=== PATIENT | female | born 2000 | race Two or more races ===

== ENCOUNTER 2025-04-05 12:42 | Inpatient (IN) ==
--- NOTE | 2025-04-05 13:15 | Emergency Department Note ---
Impression & Plan DKA (diabetic ketoacidosis), Hyperglycemia, Vomiting, Dehydration, Tachycardia ED Provider Note NAME: KITA JONES AGE: 24 SEX: F : 2000 ARRIVES VIA: Walk-In INFORMANT: [Patient] ED PROVIDER(S): [Yoandy Pedersen MD] CHIEF COMPLAINT: Hyperglycemia HISTORY OF PRESENT ILLNESS: The patient is a 24-year-old female who states that her sugars have been running high for at least a week although, today they have been over 500. The patient states that she had noted some abdominal pain with eating for the last week so, she would induce vomiting. Over the last 2 days, she has been vomiting spontaneously without induction. The patient has not had a fever or respiratory complaints. There has been no urinary complaint. She is concerned that she may be in DKA as her sugar has been high for a week now. She has been in DKA before. PMHx/PSHx/Social Hx: See Below PHYSICAL EXAM: GENERAL: Patient is in no acute distress. HEENT: No acute trauma, normocephalic atraumatic, mucous membranes moist, no nasal congestion. NECK: No stridor, no adenopathy, no meningismus, trachea is midline. LUNGS: Clear to auscultation bilaterally, no wheeze, no rhonchi, breath sounds equal. HEART: Slightly tachycardic with a subtle systolic murmur, regular rhythm. ABDOMEN: Soft, nontender, no peritonitis. EXTREMITIES: No cyanosis, full range of motion of all the joints without pain or difficulty. NEUROLOGIC: Oriented x 3, no acute motor or sensory deficits, no focal weakness. SKIN: No jaundice, no diaphoresis. DIFFERENTIAL DIAGNOSIS: DKA, hyperglycemia, dehydration, UTI, pneumonia, viral illness, among others. EMERGENCY DEPARTMENT PROCEDURES: MEDICAL DECISION MAKING: There is no leukocytosis or concerning anemia. Platelet count is somewhat high at 540. No bandemia. VBG does show acidosis consistent with the diagnosis of DKA. Renal panel testing shows a blood sugar over 600. An acidosis was present with a low CO2. No renal failure. No concerning liver enzyme elevation. testing was negative. Urinalysis shows glucose and ketones, no infection. Chest film does not show pneumonia. On exam, the patient was tachycardic. She was mentally alert. She was not hypotensive. The patient received IV saline, 1 L. She was given IV Zofran for nausea. She received a bolus of IV insulin and was placed on an insulin drip. Patient presents in DKA. Possibly, the stress of vomiting prompted the hyperglycemia and DKA. For now, admission is warranted. Hydration, insulin therapy, observation is required. I spoke with the patient and case management, the on-call hospitalist was consulted. Prior/Outside records/notes reviewed: None ECG per my interpretation: Indication was tachycardia. The ECG shows a sinus tachycardia with a rate of 103. There is no ST elevation, no PVCs. The QTc is 468. Continuous Cardiac Monitoring per my interpretation: An order was placed for continuous cardiac monitoring. The monitor shows a rate of 105 with sinus tachycardia. Imaging/x-ray results per my interpretation: Chest x-ray does not show pneumonia or cardiomegaly. Chronic Medical/Social conditions affecting care: Diabetes. Care/Management discussed with: Case management, the on-call hospitalist. Level of care consideration(s): After review of the information above and other included data: --I believe the patient requires escalation of care to admission Critical Care Note: I have personally spent 55 minutes of critical care time in the direct management of this patient. This includes bedside care, interpretation of diagnostic studies, and testing, discussion with consultants, patient, and family members, and other required patient management activities. This 55 minutes is in excess of all separately billable procedures. DISPOSITION: Admission Past Med/Surg History Problem List Tachycardia (Acute) Dehydration (Acute) Vomiting (Acute) Hyperglycemia (Acute) DKA (diabetic ketoacidosis) (Acute) No significant past surgical history Medical History Diabetes mellitus Social History Smoking Status: Never smoker Hx Alcohol Use: No Hx Substance Use: No Preferred Language: Spanish Communication Ability: Effective Rn Research Required: No Beliefs That Will Affect Care: None Current Living Situation: Alone Other Information That Helps Us Care for You: No Feels Safe at Home: Yes Safety Concerns: Feels Safe At This Time Assistive Devices: None Home Meds Home Medications Medication Instructions Recorded Confirmed lisdexamfetamine 70 mg capsule 70 mg PO QAM 03/06/25 04/05/25 trazodone 50 mg tablet 50 mg PO HS 03/06/25 04/05/25 Previous Rx's Medication Instructions Recorded insulin aspart U-100 100 unit/mL 8 unit (0.08 mL) subcut WM #15 mL 03/07/25 (3 mL) subcutaneous pen Results & Data (ED) Vital Signs Vital Signs - 24 hr 04/05/25 12:53 04/05/25 13:17 04/05/25 13:24 Temperature 36.6 C Temperature Source Temporal Artery Scan Pulse Rate 105 H 107 H 101 H Pulse Rhythm Regular Respiratory Rate 18 17 Respiratory Effort / Characteristics Non-Labored Spontaneous Respiratory Depth Normal Respiratory Pattern Regular Blood Pressure 105/69 Blood Pressure Mean 81 Pulse Oximetry 98 99 Oxygen Delivery Method Room Air Room Air Sepsis Recent Fever Within 48 Hours No Sepsis New/Unexplained Change in Mental Status No Sepsis Action Taken by Nursing No Action Required Home Medications Current Medication List: was personally reviewed by me Laboratory Data Attestation: I reviewed the patient's lab results. 04/05/25 13:21 04/05/25 14:35 Lab Results 04/05/25 04/05/25 04/05/25 Range/Units 12:53 13:21 14:24 WBC 6.53 (4.8-10.8) K/ul RBC 4.50 (4.20-5.40) M/uL Hgb 13.1 (12.0-16.0) g/dl Hct 39.2 (37.0-47.0) % MCV 87.1 (80.0-100.0) fL MCH 29.1 (25.0-34.0) pg MCHC 33.4 (32.0-36.0) g/dL RDW Std Deviation 42.3 (36.4-46.3) fL RDW Coeff of [place]lo[place] 13.4 (11.5-14.5) % Plt Count 540 H (130-400) K/uL MPV 9.1 L (9.4-12.4) fL Immature Gran % (Auto) 0.3 % Neut % (Auto) 65.6 % Lymph % (Auto) 26.5 % [place] % (Auto) 5.5 % Eos % (Auto) 1.5 % Baso % (Auto) 0.6 % Neut # (Auto) 4.28 (1.40-6.50) K/uL Lymph # (Auto) 1.73 (1.20-3.40) K/uL [place] # (Auto) 0.36 (0.11-0.59) K/uL Eos # (Auto) 0.10 (0.00-0.50) K/uL Baso # (Auto) 0.04 (0.00-0.20) K/uL Immature Gran # (Auto) 0.02 (0.01-0.20) K/uL VBG pH 7.22 L (7.36-7.41) VBG pCO2 27 L (38-50) mmHg VBG pO2 42 mmHg VBG HCO3 11 mmol/L VBG O2 Saturation 66.1 % VBG Base Excess -15.0 mEq/L Sodium 129 L (136-145) mmol/L Potassium 5.2 H (3.5-5.1) mmol/L Chloride 93 L (98-107) mmol/L Carbon Dioxide 11 L (21-32) mmol/L Anion Gap 25 H (3-11) BUN 23 (6-23) mg/dl Creatinine 0.88 (0.6-1.2) mg/dl Est Cr Clr Drug Dosing 80.5 ml/min eGFR 93.47 BUN/Creatinine Ratio 26.1 H (10-20) Glucose 613 H* (70-99(Fasting)) mg/dl POC Glucose 566 H* 434 H* (70-99) mg/dl Calcium 9.4 (8.6-10.3) mg/dl Phosphorus (2.5-4.9) mg/dl Magnesium 2.0 (1.7-2.4) mg/dl Total Bilirubin 0.4 (0.2-1.0) mg/dl AST 22 (13-39) U/L ALT 24 (7-52) U/L Alkaline Phosphatase 153 H (34-104) U/L Total Protein 8.3 (6.0-8.3) gm/dl Albumin 4.5 (3.4-5.0) gm/dl Globulin 3.8 (2.5-4.0) gm/dl Albumin/Globulin Ratio 1.2 (0.9-2) TSH 1.047 (0.300-4.500) uIu/ml HCG, Qual Negative (Negative) Urine Color Yellow Urine Appearance Clear (Clear) Urine pH 5.0 (4.5-7.5) Ur Specific [place] 1.031 H (1.000-1.030) Urine Protein Negative (Negative) Urine Glucose (UA) 3+ H (Negative) Urine Ketones 4+ H (Negative) Urine Blood Negative (Negative) Urine Nitrite Negative (Negative) Urine Bilirubin Negative (Negative) Urine Urobilinogen Negative (Negative) Ur Leukocyte Esterase Trace H (Negative) Urine WBC (Auto) 6-10 H (0-5) /hpf Urine RBC (Auto) 0-2 (0-2) /hpf U Hyaline Cast (Auto) 0-2 (0-2) /lpf U Epithel Cells (Auto) 3-5 H (0-2) /hpf Urine Bacteria (Auto) None Seen (None Seen) Urine Comment 04/05/25 04/05/25 Range/Units 14:33 14:35 WBC (4.8-10.8) K/ul RBC (4.20-5.40) M/uL Hgb (12.0-16.0) g/dl Hct (37.0-47.0) % MCV (80.0-100.0) fL MCH (25.0-34.0) pg MCHC (32.0-36.0) g/dL RDW Std Deviation (36.4-46.3) fL RDW Coeff of [place] (11.5-14.5) % Plt Count (130-400) K/uL MPV (9.4-12.4) fL Immature Gran % (Auto) % Neut % (Auto) % Lymph % (Auto) % [place] % (Auto) % Eos % (Auto) % Baso % (Auto) % Neut # (Auto) (1.40-6.50) K/uL Lymph # (Auto) (1.20-3.40) K/uL [place] # (Auto) (0.11-0.59) K/uL Eos # (Auto) (0.00-0.50) K/uL Baso # (Auto) (0.00-0.20) K/uL Immature Gran # (Auto) (0.01-0.20) K/uL VBG pH 7.19 L (7.36-7.41) VBG pCO2 (38-50) mmHg VBG pO2 mmHg VBG HCO3 mmol/L VBG O2 Saturation % VBG Base Excess mEq/L Sodium 132 L (136-145) mmol/L Potassium 3.9 D (3.5-5.1) mmol/L Chloride 101 (98-107) mmol/L Carbon Dioxide 10 L (21-32) mmol/L Anion Gap 21 H (3-11) BUN 20 (6-23) mg/dl Creatinine 0.82 (0.6-1.2) mg/dl Est Cr Clr Drug Dosing 86.4 ml/min eGFR 101.74 BUN/Creatinine Ratio 24.4 H (10-20) Glucose 446 H* (70-99(Fasting)) mg/dl POC Glucose (70-99) mg/dl Calcium 8.5 L (8.6-10.3) mg/dl Phosphorus 3.2 (2.5-4.9) mg/dl Magnesium 1.7 (1.7-2.4) mg/dl Total Bilirubin (0.2-1.0) mg/dl AST (13-39) U/L ALT (7-52) U/L Alkaline Phosphatase (34-104) U/L Total Protein (6.0-8.3) gm/dl Albumin (3.4-5.0) gm/dl Globulin (2.5-4.0) gm/dl Albumin/Globulin Ratio (0.9-2) TSH (0.300-4.500) uIu/ml HCG, Qual (Negative) Urine Color Urine Appearance (Clear) Urine pH (4.5-7.5) Ur Specific [place] (1.000-1.030) Urine Protein (Negative) Urine Glucose (UA) (Negative) Urine Ketones (Negative) Urine Blood (Negative) Urine Nitrite (Negative) Urine Bilirubin (Negative) Urine Urobilinogen (Negative) Ur Leukocyte Esterase (Negative) Urine WBC (Auto) (0-5) /hpf Urine RBC (Auto) (0-2) /hpf U Hyaline Cast (Auto) (0-2) /lpf U Epithel Cells (Auto) (0-2) /hpf Urine Bacteria (Auto) (None Seen) Urine Comment Administered Medications Insulin Human Regular 250 (units/ Sodium Chloride) 250 mls @ 5.8 mls/hr IV .Q24H KEO; Protocol Stop: 05/05/25 14:14 Last Titration: 04/05/25 16:50 Dose: 3.5 units/hr, 3.5 mls/hr Documented By: WMK Co-signed By: MES Titration: 04/05/25 16:25 Dose: 3.5 units/hr, 3.5 mls/hr Documented By: WMK Co-signed By: MES Titration: 04/05/25 15:57 Dose: 0 units/hr, 0 mls/hr Documented By: ANT Co-signed By: LEONELA Admin: 04/05/25 14:55 Dose: 5.8 units/hr, 5.8 mls/hr Documented By: ALPHONSE Co-signed By: CC Discontinued Medications Sodium Chloride (Nss) 1,000 mls @ 999 mls/hr IV .Q1H1M [facility] [place] Stop: 04/05/25 14:15 Last Infusion: 04/05/25 14:46 Dose: Infused Documented By: Admin: 04/05/25 13:26 Dose: 999 mls/hr Documented By: JUVENTINO Insulin Human Regular (Novolin-R Insulin Per Unit Charge) 10 units IV NOW STA Stop: 04/05/25 13:37 Last Admin: 04/05/25 13:45 Dose: 10 units Documented By: ALPHONSE Co-signed By: LEONELA Price (Stat Iv Infusion Titration Per Protocol) 1 each N/A NOW STA Stop: 04/05/25 14:05 Last Admin: 04/05/25 15:51 Dose: Not Given Documented By: JUVENTINO Varghesecellaneous (Dka Goal Range 150-250 Mg/Dl) 1 each N/A ONE ONE Stop: 04/05/25 14:05 Last Admin: 04/05/25 15:51 Dose: Not Given Documented By: ANT Ondansetron HCl (Ondansetron Inj 2 Mg/Ml 2 Ml Vial) 4 mg IV NOW STA Stop: 04/05/25 13:21 Last Admin: 04/05/25 13:28 Dose: 4 mg Documented By: ANT Imaging Data Radiologist's Impression: Chest X-Ray 04/05/25 13:06 XR chest 1V portable CLINICAL HISTORY: weakness COMPARISON STUDY: None FINDINGS: Heart size and pulmonary vasculature are normal. No consolidation or pleural effusion. No pneumothorax. IMPRESSION: No acute findings. ACT 112: Negative or not required by law. Electronically signed by: David Angulo M.D. 04/05/2025 1:43 PM Discharge Plan Visit Data Chief Complaint: Hyperglycemia Stated Complaint: KETOACIDOSIS ED Provider: Yoandy Pedersen Discharge Problem: DKA (diabetic ketoacidosis), Hyperglycemia, Vomiting, Dehydration, Tachycardia Patient Disposition: Admitted As Inpatient Condition: Serious Discharge Instructions Interventions: ED Discharge Assessment Last Done: 04/05/25 16:37 Discharge Problem: DKA (diabetic ketoacidosis) Qualifiers: Diabetes mellitus type: type 1 Diabetes mellitus complication detail: without coma Qualified Code(s): E10.10 - Type 1 diabetes mellitus with ketoacidosis without coma Vomiting Qualifiers: Vomiting type: unspecified Nausea presence: with nausea Qualified Code(s): R 11.2 - Nausea with vomiting, unspecified
[2025-04-05] MEDS: SODIUM CHLORIDE 0.9% 1,000 ML IV SCH (13:26)
[2025-04-05] MEDS: ONDANSETRON INJ 2 MG/ML 2 ML VIAL IV STA (13:28)
[2025-04-05 13:33] LABS: Base Excess VBG -15.0 mEq/L; HCO3 VBG 11 mmol/L; Oxygen Saturation VBG 66.1 %; PCO2 VBG 27 mmHg (38-50); PO2 VBG 42 mmHg; pH VBG 7.22 (7.36-7.41)
[2025-04-05 13:36] LABS: Hematocrit (blood only) 39.2 % (37.0-47.0); Hemoglobin 13.1 g/dl (12.0-16.0); Immature Granulocytes # (auto) 0.02 K/uL (0.01-0.20); Immature Granulocytes % (auto) 0.3 %; Mean Corpuscular Hemoglobin 29.1 pg (25.0-34.0); Mean Corpuscular Volume 87.1 fL (80.0-100.0); Platelet Count 540 K/uL (130-400); RDW Standard Deviation 42.3 fL (36.4-46.3); Red Blood Count 4.50 M/uL (4.20-5.40); White Blood Count 6.53 K/ul (4.8-10.8)
[2025-04-05 13:43] LABS: Appearance Urine Clear (Clear); Bacteria Urine Automated None Seen (None Seen); Glucose Urine UA 3+ (Negative); RBC Urine Automated 0-2 /hpf (0-2)
--- NOTE | 2025-04-05 13:44 | XRay Report ---
XR chest 1V portable CLINICAL HISTORY: weakness COMPARISON STUDY: None FINDINGS: Heart size and pulmonary vasculature are normal. No consolidation or pleural effusion. No p neumothorax. IMPRESSION: No acute findings. ACT 112: Negative or not required by law. Electronically signed by: David Angulo M.D. 04/05/2025 1:43 PM
[2025-04-05] MEDS: NovoLIN-R INSULIN PER UNIT CHARGE IV STA (13:45)
[2025-04-05 13:46] LABS: Cast Urine Automated 0-2 /lpf (0-2)
[2025-04-05 13:49] LABS: Pregnancy Test, Serum Negative (Negative)
[2025-04-05 14:03] LABS: Alanine Aminotransferase 24.0 U/L (7-52); Albumin Globulin Ratio 1.2 (0.9-2); Alkaline Phosphatase 153.0 U/L (34-104); Anion Gap 25.0 (3-11); Bilirubin,Total 0.4 mg/dl (0.2-1.0); Blood Urea Nitrogen 23.0 mg/dl (6-23); Calcium 9.4 mg/dl (8.6-10.3); Carbon Dioxide 11.0 mmol/L (21-32); Chloride 93.0 mmol/L (98-107); Creatinine Clr Calc Pharmacy 80.5 ml/min; Globulin 3.8 gm/dl (2.5-4.0); Glucose 613.0 mg/dl (70-99(Fasting)); Magnesium 2.0 mg/dl (1.7-2.4); Potassium 5.2 mmol/L (3.5-5.1); Sodium 129.0 mmol/L (136-145); Total Protein 8.3 gm/dl (6.0-8.3)
[2025-04-05] MEDS ORDERED: PHARMACY GLYCEMIC MGMT CONSULT PRN (14:04)
[2025-04-05 14:09] LABS: Thyroid Stimulating Hormone 1.047 uIu/ml (0.300-4.500)
[2025-04-05] MEDS: INSULIN REGULAR 250 UNITS in SODIUM CHLORIDE 0.9% 247.5 ML IV SCH (14:55)
[2025-04-05 15:19] LABS: Anion Gap 21.0 (3-11); Blood Urea Nitrogen 20.0 mg/dl (6-23); Calcium 8.5 mg/dl (8.6-10.3); Carbon Dioxide 10.0 mmol/L (21-32); Chloride 101.0 mmol/L (98-107); Creatinine Clr Calc Pharmacy 86.4 ml/min; Glucose 446.0 mg/dl (70-99(Fasting)); Magnesium 1.7 mg/dl (1.7-2.4); Potassium 3.9 mmol/L (3.5-5.1); Sodium 132.0 mmol/L (136-145)
--- NOTE | 2025-04-05 15:30 | History & Physical Report ---
Date of Service April 05, 2025 Assessment & Plan (1) DKA (diabetic ketoacidosis): (2) Lupus (systemic lupus erythematosus): (3) ADHD: (4) Type 1 diabetes mellitus: Plan #DKA - Admit to PCU-tele - Patient received 1 bolus insulin, NS maintenance fluids with K, insulin drip started in ED - Anion gap 25 at admission, now 21, will trend - K+ 5.2 at admission, now 3.9, will trend - Glucose level 613 at admission, now 446, will trend - Cr 0.82, BUN 20, will trend - UA 4+ ketones, 3+ glucose, trace LE, 6-10 WBC - VBG shows 7.22 VBG pH, 27 CO2; current VBG pH 7.19 - EKG sinus tachy - Chest X-ray unremarkable - BMP, Mg, pH VBG, Phosphorous q4 - 1/2 NS with 20 mEq KCl @ 150mL/hr, dextrose to be added if glucose drops under 250; DKA goal range 150-250 - CT abdomen ordered due to abdominal pain, results pending Lupus - held home hydrochloroquine ADHD - held home medication of Vivans but considering re-starting if needed History of Present Illness Chief Complaint: DKA Primary Care Provider: KAREN Quiñonez 24 y.o. F with past medical history of T1DM, Lupus, and RA who is admitted to the hospital due to DKA. Patient states she has had lower abdominal pain since 03/31, which has worsened over the past week. States her abdominal pain is worse in the RUQ and RLQ and does not radiate anywhere. She uses 15-20U Lantus pens overnight and Novolog sliding scale during day. Denies previous DKA episodes. Her glucose levels have been in the 300s for the past week. Reports decreased food intake in the past week. 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 Last meal was 2 eggs on 04/04 night. She has had 3 non-bloody, nonbilious vomiting episodes in the last week, but reports her reflux has worsened as well. Reports she also has had mild SOB in past week when walking up stairs or exerting herself. Reports mild lightheadedness which is improving. Denies syncopal episodes. Denies fever, chills, chest pain. She is mildly constipated. Allergies Allergy/AdvReac Type Severity Reaction Status Date / Time No Known Allergies Allergy Unverified 04/05/25 17:18 Home Medications Medication Instructions Recorded Confirmed Type lisdexamfetamine 70 mg capsule 70 mg PO QAM 03/06/25 04/05/25 History trazodone 50 mg tablet 50 mg PO HS 03/06/25 04/05/25 History insulin aspart U-100 100 unit/mL 8 unit (0.08 mL) subcut WM #15 mL 03/07/25 04/05/25 Rx (3 mL) subcutaneous pen Past Med/Surg History Problem List Type 1 diabetes mellitus ADHD Lupus (systemic lupus erythematosus) Tachycardia (Acute) Dehydration (Acute) Vomiting (Acute) Hyperglycemia (Acute) DKA (diabetic ketoacidosis) (Acute) No significant past surgical history Medical History Diabetes mellitus Social History Smoking Status: Never smoker Hx Alcohol Use: No Hx Substance Use: No Preferred Language: [place] Communication Ability: Effective Nurse Reviewer Required: No Beliefs That Will Affect Care: None Current Living Situation: Alone Other Information That Helps Us Care for You: No Feels Safe at Home: Yes Safety Concerns: Feels Safe At This Time Assistive Devices: None Review of Systems Constitutional: as per Subjective / HPI Physical Exam Constitutional: WD/WN, vitals as above Respiratory: normal respiratory effort, lungs clear to auscultation Cardiovascular: RRR, no murmur, no edema Gastrointestinal (Abdomen): Inspection/Auscultation: normal bowel sounds Percussion/Palpation: + abdomen tender (moderate tenderness on palpation in all quadrants) Skin: no rashes, warm and dry Psychiatric: A+Ox3, euthymic affect Lymphatic: no LE edema Results & Data Results & Data Vital Signs (Past 12 Hours) Vital Signs Temp Pulse Resp BP Pulse Ox O2 Del Method 04/05/25 13:24 101 H 04/05/25 13:17 107 H 17 99 Room Air 04/05/25 12:53 36.6 C 105 H 18 105/69 98 Room Air Code Status & VTE Plan VTE Prophylaxis Plan VTE Prophylaxis will be ordered: Yes Resident Activity Tracking Resident Involvement: Resident Care Provided Care Provided: Adult Hospital Medicine (1) DKA (diabetic ketoacidosis) Diabetes mellitus complication detail: without coma Diabetes mellitus type: type 1 Qualified Code(s): E10.10 - Type 1 diabetes mellitus with ketoacidosis without coma
[2025-04-05] MEDS ORDERED: SODIUM CHLOR 0.45% + 20MEQ KCL 20 MEQ/1,000 ML BAG IV SCH (15:45)
[2025-04-05] MEDS: STAT IV Infusion **Titration per Protocol STA (15:51)
[2025-04-05] MEDS: DKA GOAL RANGE 150-250 mg/dl ONE ×2 (15:51→17:11)
[2025-04-05] MEDS ORDERED: GLUCAGON FOR INJ 1 MG VIAL SQ PRN (16:15)
[2025-04-05] MEDS ORDERED: GLUCOSE 40% GEL 15 GM TUBE PO PRN (16:15)
[2025-04-05] MEDS ORDERED: GLUCOSE 10 TAB/TUBE PO PRN (16:15)
[2025-04-05] MEDS ORDERED: CARBOHYDRATES FOR HYPOGLYCEMIA PO PRN (16:15)
[2025-04-05] MEDS ORDERED: PENDING D5 1/2NS+20mEq KCL IVF SCH (16:45)
[2025-04-05] MEDS ORDERED: PENDING 1/2NSS+20mEq KCL IVF SCH (16:45)
[2025-04-05] MEDS: INSULIN ASPART PER UNIT CHARGE SC SCH (17:11)
[2025-04-05] MEDS: D5W AND 1/2NSS + 20MEQ KCL 20 MEQ/1,000 ML BAG IV SCH (18:03)
[2025-04-05 20:31] LABS: Anion Gap 15.0 (3-11); Blood Urea Nitrogen 16.0 mg/dl (6-23); Calcium 8.9 mg/dl (8.6-10.3); Carbon Dioxide 17.0 mmol/L (21-32); Chloride 105.0 mmol/L (98-107); Creatinine Clr Calc Pharmacy 98.8 ml/min; Glucose 220.0 mg/dl (70-99(Fasting)); Magnesium 1.8 mg/dl (1.7-2.4); Potassium 4.0 mmol/L (3.5-5.1); Sodium 137.0 mmol/L (136-145)
[2025-04-05] MEDS: OPTIRAY 320 100ml IV ONE (22:22)
[2025-04-05] MEDS: FLUCONAZOLE 50 MG TAB PO ONE (22:38)
[2025-04-05] MEDS: PANTOprazole 40 MG/10 ML SYR IV SCH (22:38)
--- NOTE | 2025-04-05 23:22 | CT Scan Report ---
Exam(s): CT ABDOMEN + PELVIS With Contrast IV Amt: 94 ml optiray 320 EXAM: CT Abdomen and Pelvis With Intravenous Contrast CLINICAL HISTORY: Reason for exam: abdominal pain/DKA. TECHNIQUE: Axial computed tomography images of the abdomen and pelvis with intravenous contrast. CTDI is 8.9 mGy and DLP is 448 mGy-cm. Automated exposure control was utilized for the study. A dose lowering technique was utilized adhering to the principles of ALARA. CONTRAST: Patient received 94 ml optiray 320 of IV contrast COMPARISON: No relevant prior studies available. FINDINGS: Lung bases: Unremarkable. No mass. No consolidation. ABDOMEN: Liver: The liver is enlarged measuring 22 cm craniocaudad. No focal liver lesion is seen. Gallbladder and bile ducts: The gallbladder is contracted but otherwise unremarkable. No calcified stones. No ductal dilation. Pancreas: Unremarkable. No mass. No ductal dilation. Spleen: Unremarkable. No splenomegaly. Adrenals: Unremarkable. No mass. Kidneys and ureters: Slightly heterogenous contrast enhancement of the kidneys. No hydronephrosis. Stomach and bowel: Unremarkable. No obstruction. No mucosal thickening. PELVIS: Appendix: The appendix is normal. Bowel loops are nondilated. No pneumoperitoneum, free fluid, or acute inflammatory changes are seen involving the bowel. Bladder: Unremarkable. No mass. Reproductive: Unremarkable as visualized. ABDOMEN and PELVIS: Intraperitoneal space: See above. Bones/joints: No acute fracture. No dislocation. Soft tissues: Unremarkable. Vasculature: Unremarkable. No abdominal aortic aneurysm. Lymph nodes: Unremarkable. No enlarged lymph nodes. IMPRESSION: 1. The appendix is normal. Bowel loops are nondilated. No pneumoperitoneum, free fluid, or acute inflammatory changes are seen involving the bowel. 2. Slightly heterogenous contrast enhancement of the kidneys. This may be due to a mixed cortical/medullary phase of excretion. Correlate with clinical scenario and urinalysis to rule out pyelonephritis. 3. The liver is enlarged measuring 22 cm craniocaudad. No focal liver lesion is seen. Electronically signed by: Reinier Perez MD 04/05/25 23:21 PM
[2025-04-06 00:24] LABS: Anion Gap 10.0 (3-11); Blood Urea Nitrogen 12.0 mg/dl (6-23); Calcium 8.0 mg/dl (8.6-10.3); Carbon Dioxide 19.0 mmol/L (21-32); Chloride 107.0 mmol/L (98-107); Creatinine Clr Calc Pharmacy 116.9 ml/min; Glucose 134.0 mg/dl (70-99(Fasting)); Magnesium 1.7 mg/dl (1.7-2.4); Potassium 3.7 mmol/L (3.5-5.1); Sodium 136.0 mmol/L (136-145)
[2025-04-06] MEDS: DEXTROSE 50% 50 ML SYRINGE IV PRN (01:27)
[2025-04-06 03:21] LABS: Anion Gap 9.0 (3-11); Blood Urea Nitrogen 10.0 mg/dl (6-23); Calcium 8.0 mg/dl (8.6-10.3); Carbon Dioxide 19.0 mmol/L (21-32); Chloride 106.0 mmol/L (98-107); Creatinine Clr Calc Pharmacy 127.6 ml/min; Glucose 234.0 mg/dl (70-99(Fasting)); Magnesium 1.7 mg/dl (1.7-2.4); Potassium 4.0 mmol/L (3.5-5.1); Sodium 134.0 mmol/L (136-145)
[2025-04-06] MEDS: LACTATED RINGER'S 1,000 ML IV SCH (04:57)
[2025-04-06] MEDS: LANTUS PER UNIT CHARGE SC ONE (06:43)
[2025-04-06] MEDS: INSULIN ASPART PER UNIT CHARGE SC SCH ×2 (07:27→09:51)
--- NOTE | 2025-04-06 07:50 | Hospitalist Progress Note ---
Date of Service April 06, 2025 Assessment & Plan (1) DKA (diabetic ketoacidosis): (2) Lupus (systemic lupus erythematosus): (3) ADHD: (4) Type 1 diabetes mellitus: Plan #DKA - Admit to PCU-tele - Patient received 1 bolus insulin, NS maintenance fluids with K, insulin drip started in ED (04/05) - Anion gap 25 at admission, now 11, gap has closed - K+ 5.2 at admission, now 3.9, will trend - Glucose level 613 at admission, now 360, will trend - Cr 0.55, BUN 8, will trend - UA 4+ ketones, 3+ glucose, trace LE, 6-10 WBC - VBG shows 7.22 VBG pH, 27 CO2; current VBG pH 7.30 - EKG sinus tachy - Chest X-ray unremarkable - BMP, pH VBG, Phosphorous q4 until 04/06 AM - Mg 2.0 on admission, now 1.5 - repleted with 2g Mg IV once - 1/2 NS with 20 mEq KCl @ 150mL/hr, dextrose to be added if glucose drops under 250; DKA goal range 150-250 - Obtained HA1c per pt request - 12.1 (04/06) - CT abdomen 04/05 shows slightly heterogenous contrast enhancement of kidneys, enlarged liver 22cm - tobacco educator consulted, will adjust insulin based on AM fasting glucose levels Lupus - held home hydrochloroquine ADHD - Patient will bring home lisdexamphetamine 70mg to take during admission, pharmacy to approve prior Admission and Anticipated Discharge Date Admission Date: April 05, 2025 Subjective Ms. Moore is a 24 y.o. F with past medical history of T1DM, Lupus, RA who was admitted for DKA. Patient was lying in bed comfortably and in no acute distress. She stated that her abdominal pain has improved. Reports moderate abdominal pain when she is moving around, but it dissipates at rest. Denies DUEÑAS, CP, SOB, dizziness, weakness, fever, N/V. No other acute concerns. Review of Systems Constitutional: as per Subjective / HPI Physical Exam Constitutional: WD/WN, vitals as above Respiratory: normal respiratory effort, lungs clear to auscultation Auscultation: no rales, no rhonchi and no wheezes Cardiovascular: RRR, no murmur, no edema Heart Sounds: normal S1 and normal S2; no gallop and no cardiac rub Gastrointestinal (Abdomen): Inspection/Auscultation: normal bowel sounds Percussion/Palpation: + abdomen tender (moderate tenderness on palpation in all quadrants) Skin: no rashes, warm and dry Psychiatric: A+Ox3, euthymic affect Results & Data Results & Data Vital Signs (Past 12 Hours) Vital Signs Temp Pulse Pulse Resp BP Pulse Ox O2 Del Method 04/06/25 07:07 36.5 C 85 19 107/68 96 Room Air 04/06/25 03:15 36.4 C L 84 17 97/62 L 99 Room Air 04/05/25 22:52 36.8 C 93 H 18 108/69 99 Room Air 04/05/25 22:00 95 H Resident Activity Tracking Resident Involvement: Resident Care Provided Care Provided: Adult Hospital Medicine (1) DKA (diabetic ketoacidosis) Diabetes mellitus complication detail: without coma Diabetes mellitus type: type 1 Qualified Code(s): E10.10 - Type 1 diabetes mellitus with ketoacidosis without coma
[2025-04-06 07:57] LABS: Anion Gap 8.0 (3-11); Blood Urea Nitrogen 8.0 mg/dl (6-23); Calcium 7.7 mg/dl (8.6-10.3); Carbon Dioxide 19.0 mmol/L (21-32); Chloride 107.0 mmol/L (98-107); Creatinine Clr Calc Pharmacy 143.2 ml/min; Glucose 337.0 mg/dl (70-99(Fasting)); Magnesium 1.6 mg/dl (1.7-2.4); Potassium 4.0 mmol/L (3.5-5.1); Sodium 134.0 mmol/L (136-145)
[2025-04-06 09:16] LABS: Anion Gap 11.0 (3-11); Blood Urea Nitrogen 8.0 mg/dl (6-23); Calcium 8.0 mg/dl (8.6-10.3); Carbon Dioxide 17.0 mmol/L (21-32); Chloride 106.0 mmol/L (98-107); Creatinine Clr Calc Pharmacy 127.6 ml/min; Glucose 360.0 mg/dl (70-99(Fasting)); Magnesium 1.5 mg/dl (1.7-2.4); Potassium 3.9 mmol/L (3.5-5.1); Sodium 134.0 mmol/L (136-145)
[2025-04-06 09:48] LABS: Hemoglobin A1C 12.1 % (4.5-5.6)
[2025-04-06] MEDS: MAGNESIUM SULFATE / D5W 1 GM/100 ML BAG IV SCH (09:52)
--- NOTE | 2025-04-06 12:58 | Pharmacy Report ---
Pharmacy Glycemic Short Note 2 - Date of Service April 06, 2025 - Glycemic Short BSG Results (Last 24 hours): 04/05/25 04/05/25 04/05/25 12:53 13:21 14:24 Glucose 613 H* POC Glucose 566 H* 434 H* 04/05/25 04/05/25 04/05/25 14:35 15:53 16:55 Glucose 446 H* POC Glucose 213 H 217 H 04/05/25 04/05/25 04/05/25 17:56 18:42 18:58 Glucose POC Glucose 145 H 206 H 227 H 04/05/25 04/05/25 04/05/25 19:35 20:05 21:07 Glucose 220 H POC Glucose 175 H 134 H 04/05/25 04/05/25 04/05/25 21:16 21:38 22:00 Glucose POC Glucose 125 H 132 H 163 H 04/05/25 04/05/25 04/05/25 23:00 23:41 23:59 Glucose 134 H POC Glucose 169 H 139 H 04/06/25 04/06/25 04/06/25 01:10 01:32 02:49 Glucose 234 H POC Glucose 110 H 199 H 235 H 04/06/25 04/06/25 04/06/25 03:56 06:32 06:34 Glucose 337 H* POC Glucose 222 H 311 H* 04/06/25 04/06/25 07:54 11:07 Glucose 360 H* POC Glucose 163 H OUTPATIENT ANTIDIABETIC REGIMEN: * Novolog 8 units SQ with meals, plus correction * HbA1c: 12.1% (04/06/25) ASSESSMENT: * Ms Moore is a 24yo diabetic admitted in DKA. She was initiated on IV insulin infusion on admission. * Labs improved overnight (AG 25-->15, Bicarb 11 --> 17, pH 7.19 --> 7.32), and overnight provider discontinued the insulin infusion. * BSGs meme again this morning, likely d/t lack of overlap of insulin infusion and basal insulin. Expect to see some improvement with Lantus. * Novolog was initiated using a moderate stress level. * Pharmacy will continue to follow and adjust insulin regimen as indicated. PLAN FOR INPATIENT GLYCEMIC CONTROL: * Basal insulin * Lantus 10 units SQ this morning * Lantus 0-10 units SQ this evening, pending BSG (see EMR for details) * Bolus insulin * NovoLog per scale ACHS or Q6hrs while NPO * Goal Range: Low 110 mg/dL - High 140 mg/dL * Correction Factor: 40 mg/dL/unit * Nutritional / Prandial insulin per carb ratio of 1 unit per 13 grams CHO consumed
[2025-04-06] MEDS: ENOXAPARIN INJ 40 MG/0.4 ML SYR SQ SCH (19:11)
[2025-04-06] MEDS: LANTUS PER UNIT CHARGE SC SCH (20:59)
[2025-04-06] MEDS: ONDANSETRON INJ 2 MG/ML 2 ML VIAL IV PRN (23:21)
[2025-04-06] MEDS: KETOROLAC TROMETHAMINE 15 MG/ML VIAL IV ONE (23:40)
[2025-04-06] MEDS: SIMETHICONE 80 MG CHEW PO PRN (23:40)
--- NOTE | 2025-04-07 05:23 | Electrocardiogram Report ---
Test Reason : Blood Pressure : */* mmHG Vent. Rate : 103 BPM Atrial Rate : 103 BPM P-R Int : 152 ms QRS Dur : 80 ms QT Int : 358 ms P-R-T Axes : 62 69 29 degrees QTcB Int : 468 ms Sinus tachycardia Otherwise normal ECG No previous ECGs available Confirmed by Robert Peters ([id number]) on 04/07/2025 5:23:35 AM Referred By: REFERRED SELF Confirmed By: Robert Peters
[2025-04-07 06:04] LABS: Hematocrit (blood only) 33.0 % (37.0-47.0); Hemoglobin 11.5 g/dl (12.0-16.0); Immature Granulocytes # (auto) 0.01 K/uL (0.01-0.20); Immature Granulocytes % (auto) 0.2 %; Mean Corpuscular Hemoglobin 29.7 pg (25.0-34.0); Mean Corpuscular Volume 85.3 fL (80.0-100.0); Platelet Count 478 K/uL (130-400); RDW Standard Deviation 41.3 fL (36.4-46.3); Red Blood Count 3.87 M/uL (4.20-5.40); White Blood Count 5.74 K/ul (4.8-10.8)
[2025-04-07 06:27] LABS: Anion Gap 7.0 (3-11); Blood Urea Nitrogen 15.0 mg/dl (6-23); Calcium 8.6 mg/dl (8.6-10.3); Carbon Dioxide 25.0 mmol/L (21-32); Chloride 103.0 mmol/L (98-107); Creatinine Clr Calc Pharmacy 100.4 ml/min; Glucose 351.0 mg/dl (70-99(Fasting)); Magnesium 1.7 mg/dl (1.7-2.4); Potassium 4.0 mmol/L (3.5-5.1); Sodium 135.0 mmol/L (136-145)
--- NOTE | 2025-04-07 08:04 | Hospitalist Progress Note ---
Date of Service April 07, 2025 Assessment & Plan (1) DKA (diabetic ketoacidosis): (2) Lupus (systemic lupus erythematosus): (3) ADHD: (4) Type 1 diabetes mellitus: Plan #DKA - Admit to PCU-tele - Patient received 1 bolus insulin, NS maintenance fluids with K, insulin drip started in ED (04/05) - Anion gap 25 at admission, now 11, gap has closed - K+ 5.2 at admission, now 4 - Glucose level 613 at admission, now 351 - Cr 0.7, BUN 15, will trend - UA 4+ ketones, 3+ glucose, trace LE, 6-10 WBC - VBG shows 7.22 VBG pH, 27 CO2; current VBG pH 7.4 - EKG sinus tachy - Chest X-ray unremarkable - BMP, pH VBG, Phosphorous q4 until 04/06 AM - Mg 2.0 on admission -->1.5 - repleted with 2g Mg IV once 04/06 --> 1.7 - 1/2 NS with 20 mEq KCl @ 150mL/hr, dextrose to be added if glucose drops under 250; DKA goal range 150-250 - Obtained HA1c per pt request - 12.1 (04/06) - CT abdomen 04/05 shows slightly heterogenous contrast enhancement of kidneys, enlarged liver 22cm - tobacco educator spoke with patient 04/06 - Pharmacy consulted to manage insulin levels, patient received 10U Lantus 04/06 AM, 5U Lantus 04/06 PM, and 20 U Lantus 04/07 AM, insulin levels will need to continue to be changed to find appropriate home regimen before discharge to decrease likelihood of repeat DKA admission Lupus - Started hydrochloroquine 200mg PO once daily as abdominal pain may be exacerbated by possible lupus flare-up ADHD - Patient will bring home lisdexamphetamine 70mg to take during admission, pharmacy to approve prior Dispo: med-surg with tele Diet: Carb Count T1DM Code: Full VTE prophylaxis: Lovenox Admission and Anticipated Discharge Date Admission Date: April 05, 2025 Subjective 24 y.o. F with past medical history of T1DM, Lupus, and RA who is admitted to the hospital due to DKA. Patient states she had some worsening abdominal pain and gassiness last night. Toradol and Simethicone helped. Reports RUQ pain and bloating that worsens after she eats. Patient also states bloody stools 1 month ago. Reports regular consistency stool with bright red blood in toilet bowl. States this occured for a few days, then resolved. Similar symptoms occured 2 weeks ago and lasted a few days, then resolved. Her last BM was Wednesday and was loose, but denies blood in her bowel movements now. Reports some abdominal pain during defecation. Reports she has an outpatient GI that last saw year and a half ago for bloating. States she has had an EGD and colonoscopy done due to bloating, but not able to locate records in chart. Patient reports she does not remember there being any abnormalities in either report. Reports her abdominal pain 2/10 on pain severity scale today. Explains that her home regimen for diabetes prior to admission was 10-15 U Lantus overnight, and 5 units insulin/30 grams of carbs with 5-10 units post-meals depending on her BSG. Review of Systems Constitutional: as per Subjective / HPI Physical Exam Respiratory: normal respiratory effort, lungs clear to auscultation Cardiovascular: RRR, no murmur, no edema Gastrointestinal (Abdomen): Inspection/Auscultation: normal bowel sounds Percussion/Palpation: + abdomen tender (diffuse mild tenderness, worse in RUQ) and abdomen soft Skin: no rashes, warm and dry Psychiatric: A+Ox3, euthymic affect Lymphatic: no LE edema Results & Data Results & Data Vital Signs (Past 12 Hours) Vital Signs Temp Pulse Pulse Resp BP BP Pulse Ox 04/07/25 07:17 36.8 C 89 18 111/70 97 04/07/25 02:55 36.9 C 80 18 122/78 96 04/07/25 01:09 94 H 04/06/25 22:55 37.2 C 90 18 156/92 H 100 O2 Del Method 04/07/25 07:17 Room Air 04/07/25 02:55 Room Air 04/07/25 01:09 04/06/25 22:55 Room Air Resident Activity Tracking Resident Involvement: Resident Care Provided Care Provided: Adult Hospital Medicine (1) DKA (diabetic ketoacidosis) Diabetes mellitus complication detail: without coma Diabetes mellitus type: type 1 Qualified Code(s): E10.10 - Type 1 diabetes mellitus with ketoacidosis without coma
[2025-04-07] MEDS: LANTUS PER UNIT CHARGE SC SCH (08:06)
[2025-04-07] MEDS ORDERED: HYDROXYCHLOROQUINE SULFATE 200 MG TAB PO SCH (09:00)
[2025-04-07] MEDS ORDERED: LANTUS PER UNIT CHARGE SC SCH (09:00)
[2025-04-07 11:20] LABS: Iron 73.0 mcg/dl (35-150); Total Iron Binding Cap Calc 288.0 mcg/dl (250-450); Transferrin 206.0 mg/dl (200-360); Transferrin (FE) Percent Satur 25.0 % (15-50)
[2025-04-07 11:40] LABS: Ferritin 102.5 ng/ml (8-388)
[2025-04-07] MEDS: HYDROXYCHLOROQUINE SULFATE 200 MG TAB PO SCH (15:09)
--- NOTE | 2025-04-07 15:54 | Discharge Summary ---
Date of Service April 07, 2025 Admission HPI Per Admitting Provider 24 y.o. F with past medical history of T1DM, Lupus, and RA who is admitted to the hospital due to DKA. Patient states she has had lower abdominal pain since 03/31, which has worsened over the past week. States her abdominal pain is worse in the RUQ and RLQ and does not radiate anywhere. She uses 15-20U Lantus pens overnight and Novolog sliding scale during day. Denies previous DKA episodes. Her glucose levels have been in the 300s for the past week. Reports decreased food intake in the past week. 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 Last meal was 2 eggs on 04/04 night. She has had 3 non-bloody, nonbilious vomiting episodes in the last week, but reports her reflux has worsened as well. Reports she also has had mild SOB in past week when walking up stairs or exerting herself. Reports mild lightheadedness which is improving. Denies syncopal episodes. Denies fever, chills, chest pain. She is mildly constipated. Admission Exam Per Admitting Provider Constitutional: WD/WN, vitals as above Respiratory: normal respiratory effort, lungs clear to auscultation Cardiovascular: RRR, no murmur, no edema Gastrointestinal (Abdomen): Inspection/Auscultation: normal bowel sounds Percussion/Palpation: + abdomen tender (moderate tenderness on palpation in all quadrants) Skin: no rashes, warm and dry Psychiatric: A+Ox3, euthymic affect Lymphatic: no LE edema Principal Diagnosis DKA Discharge Exam Constitutional WD/WN, vitals as above Respiratory normal respiratory effort, lungs clear to auscultation Cardiovascular RRR, no murmur, no edema Gastrointestinal (Abdomen) Inspection/Auscultation: normal bowel sounds Percussion/Palpation: + abdomen tender (diffuse, worse in RUQ upon palpation) Skin no rashes, warm and dry Psychiatric A+Ox3, euthymic affect Lymphatic no LE edema Discharge Data Allergies Allergy/AdvReac Type Severity Reaction Status Date / Time No Known Allergies Allergy Unverified 04/05/25 17:18 Consultations 04/05/25 14:19 ED Decision to Admit Stat Ordered Studies 04/05/25 16:45 CT abdomen pelvis veno w con Routine 04/07/25 12:02 US RUQ [US liver] Routine Hospital Course (1) DKA (diabetic ketoacidosis): (2) Lupus (systemic lupus erythematosus): (3) ADHD: (4) Type 1 diabetes mellitus: Plan #DKA - Admit to PCU-tele - Patient received 1 bolus insulin, NS maintenance fluids with K, insulin drip started in ED (04/05) - Anion gap 25 at admission, now 11, gap has closed, insulin drip was stopped - K+ 5.2 at admission, now 4.0 - Glucose level 613 at admission, now 351 04/07 AM - Cr 0.7, BUN 15 - UA 4+ ketones, 3+ glucose, trace LE, 6-10 WBC - VBG shows 7.22 VBG pH, 27 CO2; current VBG pH 7.4 - EKG sinus tachy - Chest X-ray unremarkable - BMP, pH VBG, Phosphorous q4 until 04/06 AM - Mg 2.0 on admission --> 1.5 - repleted with 2g Mg IV once --> 1.7 04/07 - 1/2 NS with 20 mEq KCl @ 150mL/hr, dextrose to be added if glucose drops under 250; DKA goal range 150-250 - Obtained HA1c per pt request - 12.1 (04/06) - CT abdomen 04/05 shows slightly heterogenous contrast enhancement of kidneys, enlarged liver 22cm - perinatal educator consulted who spoke with patient 04/06 - Pharmacy consult for insulin management, current hospital regimen was 20U Lantus, correction factor 40mg, carb ratio 1:13 - Iron studies and ferritin WNL, collected due to minor drop in Hgb levels during admission - Patient left AMA 04/07, advised to make appointment with investment banking analyst regarding insulin regimen and f/u as well as rv detailer due to RUQ pain after eating and past history of bloody stools Lupus - started hydrochloroquine 200mg 04/07, abdominal pain could possibly be exacerbated by Lupus flare up ADHD - Patient will bring home lisdexamphetamine 70mg to take during admission, pharmacy to approve prior VTE Prophylaxis: Lovenox Code status: full Dispo: admit (patient left AMA) Diet: Carb Count T1DM Total Time Total Time Spent Total Time Spent (In Minutes): As per attending attestation Discharge Plan Discharge Items Patient Disposition: Against Medical Advice Reason For Visit: DKA Condition on Discharge: Serious Activity: Per Instructions section Non-emergency contact: Primary Care Provider Follow-up/Referrals: Janet Medina CRNP [Primary Care Provider] - [employer]er Provider Instructions: Patient left AMA. Pending Studies at Discharge: No Stand-Alone Forms: My Floq, Smoking Cessation Medications and DC Order Prescriptions: New insulin aspart U-100 [Novolog FlexPen U-100 Insulin] 100 unit/mL (3 mL) insulin pen 30 unit subcut DAILY Qty: 15 0RF (DME) pen needle, diabetic 32 gauge x 5/32" needle See Rx Instructions .Route Qty: 100 0RF Rx Instructions: As directed (DME) blood-glucose meter [True Metrix Glucose Meter] Misc See Rx Instructions .Route Qty: 1 0RF Rx Instructions: As directed (DME) True Metrix Glucose Test Strip Strip See Rx Instructions .Route Qty: 100 0RF Rx Instructions: As directed (DME) lancets [TRUEplus Lancets] 30 gauge misc See Rx Instructions .Route Qty: 100 0RF Rx Instructions: As directed insulin glargine [Lantus U-100 Insulin] 100 unit/mL Solution 20 unit SC DAILY Qty: 0 0RF Continued trazodone 50 mg tablet 50 mg PO HS lisdexamfetamine 70 mg capsule 70 mg PO QAM insulin aspart U-100 100 unit/mL (3 mL) insulin pen 8 unit subcut WM Qty: 15 0RF Rx Instructions: Inject 8 units with meals with a sensitive correction scale. SENSITIVE CORRECTION SCALE: 70-150=0 UNIT, 151-200=1 UNIT, 201-250=2 UNITS, 251-300=3 UNITS EACH PEN ONLY GOOD FOR 28 DAYS FROM INITIAL START Discharge Orders: Left Against Medical Advice (Routine); Ordered 04/07/25 Ordered By: Dell Garcia Admission Data Admit Date/Time: 04/05/25 15:18 Attending Provider: Dell Garcia Admit Provider: Lilli Portillo Primary Care Provider: Janet Medina Other Providers: Dell Garcia Resident Activity Tracking Resident Involvement: Resident Care Provided Care Provided: Adult [facility] Medicine
== END 2025-04-07 18:25 | disposition left against medical advice (07) | DRG 639 ==
LOC: ED 12:42 → 2S 15:18